=== PATIENT | female | born 1950 | race Caucasian/White ===

== ENCOUNTER 2018-07-04 20:20 | Emergency (ER) | payer SELFPAY ==
[2018-07-04 20:20] VITALS: PULSE 72; O2SAT 85
--- NOTE | 2018-07-04 20:39 | EKG12_ITS ---
Test Reason : Blood Pressure : / mmHG Vent. Rate : 122 BPM Atrial Rate : 122 BPM P-R Int : 156 ms QRS Dur : 154 ms QT Int : 428 ms P-R-T Axes : 049 -44 056 degrees QTc Int : 609 ms Sinus tachycardia with Premature supraventricular complexes Left axis deviation Right bundle branch block Abnormal ECG Confirmed by CORY MOSHER, FREDDY ([id number]), editor map ROSA BRADY ([id number]) on 07/08/2018 2:35:52 PM Referred By: ESTRELLA Confirmed By:FREDDY RAY MD
[2018-07-04 21:11] LABS: Bedside Glucose 82 mg/dL (70-110)
--- NOTE | 2018-07-04 21:31 | ED.RN ---
SEE CODE CHARTING
--- NOTE | 2018-07-04 22:27 | ED.RN ---
SALINE AND ICE PACK APPLIED TO PATIENTS EYES AT THIS TIME
--- NOTE | 2018-07-04 22:51 | ED.RN ---
PATIENT TO THE GEMA AT THIS TIME
--- NOTE | 2018-07-04 23:22 | ED.DCSUM_ITS ---
- ER Visit Summary Date of Service: 07/04/18 Chief Complaint: Unresponsive History of Present Illness: The patient is a 67 F presenting by EMS secondary to being found down and unresponsive in a parking lot. EMS was contacted secondary to the patient's being unresponsive. Upon their arrival bystander CPR had been in progress. Patient was found to be in PEA, and ACLS protocol was initiated and continued into the hospital. Additional history was unable to be obtained. Physical Examination: There is no gag reflex, patient has no spontaneous respirations, and pulses are absent. GCS is 3. Head is normocephalic. Pupils are 5 mm and fixed bilaterally. Neck is supple. Abdomen was soft and nondistended. No significant edema noted. Patient exhibits no neurologic response. Test Results: None Emergency Department Course and Treatment: Patient presented secondary to a out of hospital cardiac arrest. Patient was immediately transferred to the resuscitation bay. Patient was intubated using direct laryngoscopy, a Edmar 3 blade was used and a 7.5 ET tube was placed with good color change and bilateral breath sounds. Initial pulse check showed the patient to be in PEA. ACLS was continued, patient was given multiple rounds of epinephrine, bicarbonate. Patient had a brief spontaneous return of circulation. An EKG was obtained which showed diffuse ST depressions, but no evidence of ST elevation. Patient had a couple of runs of ventricular tachycardia, she was given amiodarone. Patient then suffered repeat cardiac arrest. Multiple subsequent rounds of CPR were performed with the patient having an episode of ventricular fibrillation that was defibrillated. Ultimately the patient received approximately a total of an hour of CPR, and at that time it was deemed that the survivability of this is unlikely. Patient was pronounced at that time. Family was notified. Disposition: Impression: 1. Cardiopulmonary arrest 2. Endotracheal intubation 3. CPR with defibrillation Critical care time 60 minutes This note was generated with [employer] dictation software. It may contain incorrect words, spelling, and punctuation that were not noted in review of the chart prior to signing ED Disposition - Plan for ED Patient: Disposition: Chief Complaint: CPR Referrals: Care Physician,No Primary [Primary Care Provider] -
== END 2018-07-04 22:50 ==
PROVIDERS: Emergency Provider Emergency Medicine
DX: I46.9 Cardiac arrest, cause unspecified (principal); R40.2430 Glasgow coma scale score 3-8, unspecified time; E66.9 Obesity, unspecified; I10 Essential (primary) hypertension; E78.00 Pure hypercholesterolemia, unspecified; Z86.73 Personal history of transient ischemic attack (TIA), and cerebral infarction without residual deficits; Z79.82 Long term (current) use of aspirin; Z79.899 Other long term (current) drug therapy; Z72.0 Tobacco use
CPT/HCPCS: 31500; 51702; 82962; 92950; 93005; 94002; J7030; A4216